=== PATIENT | male | born 1960 | race Two or more races ===

== ENCOUNTER 2021-02-12 12:43 | Emergency (ER) | payer SELFPAY ==
[~2021-02-12] VITALS: Ht 180.3 cm; Wt 83.0 kg
[2021-02-12 12:44] VITALS: BP 158/92
== END 2021-02-12 13:47 | disposition left against medical advice (07) ==
LOC: ER 12:43
DX: S91.312A Laceration without foreign body, left foot, initial encounter (principal); Z53.21 Procedure and treatment not carried out due to patient leaving prior to being seen by health care provider; W19.XXXA Unspecified fall, initial encounter; Y93.89 Activity, other specified; Y92.89 Other specified places as the place of occurrence of the external cause; Y99.8 Other external cause status